=== PATIENT | male | born 1940 | race Two or more races ===

== ENCOUNTER 2020-04-27 18:27 | Inpatient (IN) | payer MEDICARE, OTHER ==
[~2020-04-27] VITALS: Ht 167.6 cm; Wt 68.4 kg
[2020-04-27] MEDS ORDERED: LIDOCAINE W/ EPINEPHRINE 2% INJ 20ML VIAL ID ONE (19:45)
[2020-04-27 19:49] LABS: Basophils # (auto) 0.1 10 ^3/uL (0-0.2); Eosinophils # (auto) 0.2 10 ^3/uL (0-0.8); Eosinophils % (auto) 2.6 % (0.0-7.0); Hematocrit 41.9 % (41.0-53.0); Hemoglobin 14.3 g/dL (13.5-17.5); Lymphocytes # (auto) 1.3 10 ^3/uL (0.4-5.4); Lymphocytes % (auto) 21.4 % (10.0-50.0); Mean Corpuscular Hemoglobin 33.7 pg (28.0-32.0); Mean Corpuscular Volume 98.9 fL (80.0-100.0); Monocytes # (auto) 0.5 10 ^3/uL (0-1.3); Monocytes % (auto) 7.7 % (0.0-12.0); Neutrophils % (auto) 67.3 % (37.0-80.0); Nucleated Red Blood Cells % 0.1 %; Platelet Count (auto) 189 10^3/uL (140-450); Red Blood Cells 4.23 10^6/uL (4.5-5.90); Red Cell Distribution Width 14.1 % (11.8-14.3)
[2020-04-27 20:08] LABS: Albumin 3.3 g/dL (3.4-5.0); Magnesium 2.2 mg/dL (1.6-2.6); Potassium 3.9 mmol/L (3.5-5.1)
[2020-04-27] MEDS ORDERED: HYDROcodone-ACET 5/325MG TAB PO ONE (20:15)
[2020-04-27] MEDS ORDERED: ONDANSETRON ODT 4 MG TAB PO ONE (20:15)
[2020-04-27 20:16] LABS: Bilirubin, Total 0.3 mg/dL (0.2-1.0)
[2020-04-27 20:26] LABS: INR 1.01 (0.9-1.15); Partial Thromboplastin Time 27.1 sec (23.0-31.2)
[2020-04-27] MEDS ORDERED: NITROGLYCERIN 0.4 MG SL TAB SL PRN (23:00)
[2020-04-27] MEDS ORDERED: MORPHINE SULF INJ 2 MG/ML SYRINGE 1ML IV PRN (23:00)
[2020-04-27] MEDS ORDERED: TEMAZEPAM 15 MG CAP PO PRN (23:00)
[2020-04-28 03:21] LABS: BUN/Creatinine Ratio 23.2; Calcium 9.1 mg/dL (8.5-10.1); Potassium 4.6 mmol/L (3.5-5.1)
[2020-04-28 06:27] LABS: Basophils # (auto) 0.1 10 ^3/uL (0-0.2); Basophils % (auto) 0.8 % (0.0-2.0); Eosinophils # (auto) 0.2 10 ^3/uL (0-0.8); Eosinophils % (auto) 2.3 % (0.0-7.0); Hematocrit 41.8 % (41.0-53.0); Lymphocytes # (auto) 1.3 10 ^3/uL (0.4-5.4); Lymphocytes % (auto) 15.9 % (10.0-50.0); Mean Corpuscular Hemoglobin 33.1 pg (28.0-32.0); Mean Corpuscular Hgb Conc. 33.5 g/dL (32.0-36.0); Mean Corpuscular Volume 98.9 fL (80.0-100.0); Monocytes # (auto) 0.7 10 ^3/uL (0-1.3); Monocytes % (auto) 9.2 % (0.0-12.0); Neutrophils # (auto) 5.7 10 ^3/uL (1.6-8.6); Neutrophils % (auto) 71.8 % (37.0-80.0); Nucleated Red Blood Cells % 0.1 %; Platelet Count (auto) 192 10^3/uL (140-450); Red Blood Cells 4.23 10^6/uL (4.5-5.90); Red Cell Distribution Width 14.1 % (11.8-14.3)
[2020-04-28] MEDS: ASPirin 81 mg TAB PO SCH (10:45)
[2020-04-28] MEDS: FAMOTIDINE 20 MG TAB PO SCH (10:46)
[2020-04-28] MEDS ORDERED: IOHEXOL 350 MG/ML 100ML IJ ONE (12:31)
[2020-04-29] VITALS (8 sets, daily range): BP systolic 126–171; BP diastolic 72–97
[2020-04-29] MEDS: ATORVASTATIN 20 MG TAB PO SCH ×2 (00:33→22:25)
[2020-04-29] MEDS: FAMOTIDINE 20 MG TAB PO SCH ×3 (00:33→22:25)
--- NOTE | 2020-04-29 07:45 | NUR ---
Opening Shift Note Assumed care of patient, awake and alert. No S/S of distress/SOB or pain. Instructed on POC and to call for assist PRN, will continue to monitor for changes Q1hr and PRN. Bed locked in lowest position with two side rails up and call light in reach.
[2020-04-29] MEDS ORDERED: ADENOSINE 63 MG in GIVE UN-DILUTED 0 ML IV STA (08:15)
--- NOTE | 2020-04-29 10:02 | NUR ---
WOUND CARE NOTE: Wound care in to see patient per wound care request regarding " occipital laceration, skin tears L L Extremity". Bedside nurse took photograph of patient's wounds upon admission for reference. Patient is 80 years old male with admitting diagnosis of Elevated Troponin. Patient resting in bed in Rm. 214B. Patient is awake, alert and oriented. Patient is in no stated pain at this time. He's ambulatory and self turning and repositioning. His Juan score is 20. No open wound noted other than dry, 4cm stapled laceration to posterior head with intact 10 park and dry intact scabbed wounds, scrapes to patient's LLE,no drainage/odor noted, left open to air. On reports,patient is s/p fall injury. No pressure injury noted. No further wound care monitoring needed at this time. Patient tolerated well. Bed in low position, call shelton within reach, all safety precautions in placed. RECOMMENDATION: Reconsult for active wound, pressure injury, low Juan score of 12 and below. Addendum: 04/29/20 at 1504 by Luzma Rueda RN Amended: Links added.
[2020-04-29] MEDS: ASPirin 81 mg TAB PO SCH (10:09)
[2020-04-30] VITALS (7 sets, daily range): BP systolic 124–157; BP diastolic 70–84
--- NOTE | 2020-04-30 02:00 | NUR ---
Called by weigher and charger Viviane who stated that grand daughter keeps calling and demanding to know information regarding his upcoming procedure. She believes he isn't being informed properly. She explained that there are trinidadian speaking staff members who spoke with him and he agrees so it will be done. While I was speaking with the weigher and charger, grand daughter "Ramona" called the office and was very upset. She stated that no one is giving her any information and the skilled nursing facilities professional isn't calling her back. It was explained again that the patient is A&O x 4, was explained the procedure and as far as we are concerned he will have the procedure. She wanted me to page Dr. Xavier to call her at 0200 am and I declined stating there wasn't a reason. She stated that if someone doesn't talk to her then she will come to the hospital and take the patient AMA. I reminded her again that he is alert and she will be unable to come and get him. She asked if the patient could during procedure and I stated with any procedure, there are risks and she stated that we "better not do anything to him unless they talk to her first". I attempted to reassure her.I verified phone number and told her that either Dr. Xavier or Jose CRUZ would call her if possible. She verbalized understanding and felt satisfied for the time being.
[2020-04-30 07:25] LABS: Basophils # (auto) 0.1 10 ^3/uL (0-0.2); Basophils % (auto) 0.7 % (0.0-2.0); Eosinophils # (auto) 0.1 10 ^3/uL (0-0.8); Eosinophils % (auto) 1.2 % (0.0-7.0); Hematocrit 40.4 % (41.0-53.0); Hemoglobin 13.8 g/dL (13.5-17.5); Lymphocytes # (auto) 1.6 10 ^3/uL (0.4-5.4); Lymphocytes % (auto) 18.5 % (10.0-50.0); Mean Corpuscular Hemoglobin 33.6 pg (28.0-32.0); Mean Corpuscular Hgb Conc. 34.1 g/dL (32.0-36.0); Mean Corpuscular Volume 98.4 fL (80.0-100.0); Monocytes # (auto) 0.8 10 ^3/uL (0-1.3); Monocytes % (auto) 9.2 % (0.0-12.0); Neutrophils # (auto) 5.9 10 ^3/uL (1.6-8.6); Neutrophils % (auto) 70.4 % (37.0-80.0); Platelet Count (auto) 187 10^3/uL (140-450); Red Cell Distribution Width 13.7 % (11.8-14.3); White Blood Cell 8.4 10^3/uL (4.4-10.8)
[2020-04-30 07:41] LABS: INR 1.03 (0.9-1.15); Partial Thromboplastin Time 28.5 sec (23.0-31.2)
[2020-04-30 07:42] LABS: Potassium 3.8 mmol/L (3.5-5.1)
[2020-04-30 07:49] LABS: BUN/Creatinine Ratio 22.7; Calcium 8.9 mg/dL (8.5-10.1)
--- NOTE | 2020-04-30 09:30 | NUR ---
RECEIVED A CALL FROM PATIENTS GRANDDAUGHTER JOURDAN. PER JOURDAN SHE HAS BEEN CALLING FOR TWO DAYS AND HAS HAD NO CALL FROM ANYONE INCLUDING NURSE. I HAVE HAD THIS PATIENT NOW TODAY 04/30/20 HAS BEEN DAY 2 AND HAVE RECEIVED NO CALLS, THIS MAY PERTAIN TO ER IM NOT TOO SURE. I EXPLAINED TO THE GRANDDAUGHTER UPON CONFIRMATION OF PASS[employer], PATIENT STATUS AND PLAN FOR THE DAY INCLUDING THE PROCEDURE OF LHC SCHEDULED FOR TODAY WITH DR CEE. JOURDAN WOULD LIKE ME TO EXPLAIN THE RISKS AND BENEFITS OF PROCEDURE AND THE URGENT NECESSITY. I SIMPLY EXPLAINED TO JOURDAN THAT I CANNOT, IT IS NOT IN MY SCOPE OF PRACTICE TO EXPLAIN THE RISKS AND BENEFITS TO HER OR PATIENT. I EXPLAINED THAT CLOTH REELER MICHELLE HAS BEEN IN TO SEE PATIENT AND HAS EXPLAINED THIS TO BETSY. PATIENT DOES AGREE TO PROCEDURE. AT THIS TIME PATIENT IS A/O X4 AND AMBULATORY. I ALSO EXPLAINED TO THE GRAND DAUGHTER THAT SINCE PATIENT IS ABLE TO MAKE OWN DECISIONS AND DOES NOT HAVE A POA OR ANY OTHER LEGAL PAPERWORK HE IS ABLE TO MAKE HIS OWN DECISION ON WHETHER OR NO HER WOULD LIKE TO HAVE THIS PROCEDURE. PER THE GRAND DAUGHTER SHE WILL CALL HER GRANDFATHER SREE MEYER AND MAKE SURE HE REFUSES UNTIL A PHYSICIAN CALLS HER AND EXPLAINS EVERYTHING, I EXPLAINED TO HER I CAN REQUEST BUT CANNOT GUARANTEE. SHE MAY WANT TO SIGN HIM OUT AMA PER JOURDAN. I HAVE NOTIFIED MY CHARGE LOPEZ ORTEGA. LOPEZ ORTEGA MYSELF, AND ANOTHER RN WHO WAS ABLE TO TRANSLATE IN DETAIL ASKED PATIENT IF HE HAD ANY QUESTIONS OR CONCERNS AND WHETHER OR NOT HE WOULD LIKE TO DO PROCEDURE ([facility]). PATIENT AGREES AND STATES HE KNOWS HIS GRAND DAUGHTER HAS BEEN CALLING AND WILL UPDATE HER ON HIS DECISION. UPON WALKING OUT OF ROOM PATIENTS TIFFANIE SOLIMAN CALLED, AND PATIENT WAS INSTRUCTED NOT TO SIGN ANY PAPERS. I WILL NOTIFY DR CEE OF REQUEST .
[2020-04-30] MEDS: ASPirin 81 mg TAB PO SCH (10:00)
[2020-04-30] MEDS: FAMOTIDINE 20 MG TAB PO SCH ×2 (10:00→22:51)
--- NOTE | 2020-04-30 10:30 | NUR ---
DR CEE AT BEDSIDE PER MY REQUEST TO EXPLAIN ONCE AGAIN PROCEDURE TO PATIENT. PATIENT DID NOTIFY ME AT THIS TIME THAT HIS GRANDDAUGHTER STATED NOT TO SIGN ANY PAPERS. DR CEE THOROUGHLY EXPLAINED ALL RISKS AND BENEFITS WELL PROCEDURE TO PATIENT. DR CEE ALSO CALLED GRANDDAUGHTER ON TELEPHONE JOURDAN AT [phone] IN MY PRESENCE, DR CEE EXPLAINED DISEASE PROCESS, CAUSES, RISKS AND BENEFITS WELL PROCEDURE. AT THIS TIME JOURDAN WISHES TO NOT HAVE ANY PROCEDURE DONE AND WANTS SECOND OPINION. GRAND DAUGHTER VERBALIZED UNDERSTANDING AND IS WELL AWARE OF RISKS IN NOT HAVING ANY PROCEDURES DONE AT THIS TIME.
--- NOTE | 2020-04-30 11:00 | NUR ---
DR SILVANA SANTIAGO.
--- NOTE | 2020-04-30 11:56 | NUR ---
Nutrition Assessment Notes Please refer to link for full assessment notes. Est Energy needs: 7255-4620 kcals (20-23 kcal/kgBW) Est Protein needs: 75-82 gms/day (1.0-1.1 gm/kgBW) Will continue to monitor and reassess prn. Addendum: 04/30/20 at [address] Amended: Links added.
--- NOTE | 2020-04-30 15:22 | NUR ---
Medicare IM Patient has been provided with IM by Jess ORTEGA and placed in chart. Addendum: 04/30/20 at 1523 by Mary Jo MARQUEZ Amended: Links added.
--- NOTE | 2020-04-30 16:11 | NUR ---
Assessment Patient is a 80 year old male, patient was unable to participate in assessment, SW called crow (Ramona [phone]). Per granddaughter, patient is alert and oriented. Per granddaughter, patient can do all ADL's and ambulate independently. Per granddaughter, patient lives with her and her father and patient will return home post discharge. Per granddaughter, patient receives social security as income. Per granddaughter, she is his support system and she will provide transportation post discharge. Per granddaughter, patient has POA but not filed at [facility]. Discharge planning: Patient will return home post discharge and follow up with PCP post discharge. There are no other post discharge concerns at the moment. Addendum: 04/30/20 at 1617 by DEVENDRA MARQUEZ Amended: Links added.
[2020-04-30] MEDS: ATORVASTATIN 20 MG TAB PO SCH (22:51)
[2020-05-01 05:00] VITALS: BP 132/69
[2020-05-01 09:00] VITALS: BP 136/71
[2020-05-01] MEDS: ASPirin 81 mg TAB PO SCH (09:21)
[2020-05-01] MEDS: FAMOTIDINE 20 MG TAB PO SCH ×2 (09:21→21:35)
[2020-05-01 13:00] VITALS: BP 145/60
--- NOTE | 2020-05-01 13:35 | NUR ---
Dr. Melendez at bedside discussed with grand daughter -Ramona, patient and grand daughter agreed to proceed a procedure.
[2020-05-01 17:12] VITALS: BP 154/91
--- NOTE | 2020-05-01 19:34 | NUR ---
Opening Shift Note Received report and assumed care of patient. Patient is awake and alert. No signs or symptoms of distress noted. Instructed patient on plan care of and to call for assistance. Will continue to monitor.
[2020-05-01] MEDS: ACETAMINOPHEN 325 MG TAB PO PRN (21:36)
[2020-05-01] MEDS: ATORVASTATIN 20 MG TAB PO SCH (21:36)
[2020-05-01 22:00] VITALS: BP 130/76
[2020-05-02 05:00] VITALS: BP 140/78
[2020-05-02 09:00] VITALS: BP 150/76
[2020-05-02] MEDS: FAMOTIDINE 20 MG TAB PO SCH ×2 (09:58→21:34)
[2020-05-02] MEDS: ASPirin 81 mg TAB PO SCH (09:59)
[2020-05-02 13:00] VITALS: BP 159/73
[2020-05-02 17:00] VITALS: BP 126/70
[2020-05-02 19:06] LABS: Urine WBC None Seen /hpf (0 - 3)
[2020-05-02 19:22] LABS: Urine Bacteria NONE SEEN /hpf (None Seen); Urine Blood Negative /uL (Negative); Urine Specific Gravity 1.012 (1.001-1.035)
[2020-05-02] MEDS ORDERED: LORazepam 2MG/ML-1ML VIAL IV PRN (20:15)
[2020-05-02] MEDS: ATORVASTATIN 20 MG TAB PO SCH (21:34)
[2020-05-02 21:52] LABS: Amphetamine Screen, Urine NEGATIVE (NEGATIVE); Barbiturate Scree,Urine NEGATIVE (NEGATIVE); Benzodiazephine Screen, Urine NEGATIVE (NEGATIVE); Cannabinoid Screen, Urine NEGATIVE (NEGATIVE); Cocaine Screen, Urine NEGATIVE (NEGATIVE); Opiate Scree,Urine NEGATIVE (NEGATIVE); Phencyclidine Screen, Urine NEGATIVE (NEGATIVE)
[2020-05-02 21:55] LABS: Alcohol, Urine < 3.0 mg/dL (0-10)
[2020-05-02 22:17] VITALS: BP 137/67
[2020-05-03 05:17] VITALS: BP 132/69
[2020-05-03 09:00] VITALS: BP 132/72
[2020-05-03] MEDS: ASPirin 81 mg TAB PO SCH (09:15)
[2020-05-03] MEDS: FAMOTIDINE 20 MG TAB PO SCH ×2 (09:15→22:00)
[2020-05-03] MEDS: ACETAMINOPHEN 325 MG TAB PO PRN (12:00)
[2020-05-03 13:00] VITALS: BP 121/87
--- NOTE | 2020-05-03 13:11 | NUR ---
Nutrition Followup Notes Pt wt is 68.1 kg Pt is with a Cardiac 2gNa diet, appetite is good aeb 100% x6 meals per RN doc. Per notes pt is active for lft heart cath. Please refer to link for full assessment notes. Est Energy needs: 5819-9197 kcals (20-23 kcal/kgBW) Est Protein needs: 75-82 gms/day (1.0-1.1 gm/kgBW) Will continue to monitor and reassess prn. LABS: BUN 19 H, Alb 3.3 L GI: Pt had 1 BM today per RN doc BS: 22 low risk. Refer to wound assessment report for further details PES: Altered nutrition related lab values r/t current medical condition aeb elev RFT, hypoalbuminemia Comments Will continue to monitor PO status, skin status, pertinent labs and weight trends. Will f/u in 3-5 days 1) Continue to closely monitor pt PO intake to meet at least 75% of meals 2) Continue current plan of care
[2020-05-03 17:00] VITALS: BP 132/77
[2020-05-03 22:00] VITALS: BP 122/87
[2020-05-03] MEDS: ATORVASTATIN 20 MG TAB PO SCH (22:00)
[2020-05-04] VITALS (7 sets, daily range): BP systolic 122–164; BP diastolic 58–81
[2020-05-04] MEDS: ASPirin 81 mg TAB PO SCH (09:29)
[2020-05-04] MEDS: FAMOTIDINE 20 MG TAB PO SCH ×2 (09:29→21:22)
--- NOTE | 2020-05-04 09:38 | NUR ---
Informed patient that he will have [facility] tomorrow and NPO AMN, patient verbalized understanding. Patient does not want to sign a consent right now, and he wants to discuss with his granddaughter. He want doctor to explain again on the surgery day. Will endorse to oriana rodriguez. Kiln [employer]er by [employer] #[id number].
--- NOTE | 2020-05-04 19:00 | NUR ---
Opening Shift Note Assumed care of patient, awake and alert. No S/S of distress/SOB or pain. Instructed on POC and to call for assist PRN, will continue to monitor for changes Q1hr and PRN. Patient in the lowest possible position with call light within reach. Bed rails up x2.
[2020-05-04] MEDS: ATORVASTATIN 20 MG TAB PO SCH (21:23)
--- NOTE | 2020-05-04 23:19 | NUR ---
Dr Magdaleno at bedside. No new orders. Will continue to monitor.
[2020-05-05] MEDS ORDERED: SODIUM CHLORIDE 0.9% 1,000 ML IV SCH (00:15)
[2020-05-05 05:00] VITALS: BP 143/90
--- NOTE | 2020-05-05 05:05 | NUR ---
Linens changed, patient cleaned.
--- NOTE | 2020-05-05 07:30 | NUR ---
Opening Shift Note Assumed care of patient, awake and alert. No S/S of distress/SOB or pain. Instructed on POC,t o keep NPO for Heart cath,call light within reach patient reminded instructed to call for assistance, will continue to monitor for changes Q1hr and PRN. Bed locked in lowest position with two side rails up,patient verbalized understanding.
[2020-05-05 08:00] VITALS: BP 130/86
[2020-05-05 09:00] VITALS: BP 130/86
--- NOTE | 2020-05-05 09:36 | NUR ---
TO [employer] DEVELOPER VIA BED ACCOMPANIED BY [employer] DEVELOPER STAFF FOR RIGHT HEART CATHETERIZATION
[2020-05-05] MEDS ORDERED: LIDOCAINE 2%HCL (LOCAL ANESTH.) INJ 20ML MDV ONE (09:40)
[2020-05-05] MEDS ORDERED: ANGIOMAX 250 MG VIAL IV ONE (10:17)
[2020-05-05] MEDS ORDERED: fentaNYL CITRATE 100 MCG/2 ML VL ONE (10:17)
[2020-05-05] MEDS ORDERED: MIDAZOLAM HCL 1MG/1ML-2 ML VIAL ONE (10:18)
[2020-05-05] MEDS ORDERED: SODIUM CHL 0.9% 0 ML ONE (10:18)
[2020-05-05 11:27] LABS: Basophils # (auto) 0.1 10 ^3/uL (0-0.2); Eosinophils # (auto) 0.1 10 ^3/uL (0-0.8); Eosinophils % (auto) 1.8 % (0.0-7.0); Hematocrit 44.9 % (41.0-53.0); Hemoglobin 14.8 g/dL (13.5-17.5); Lymphocytes # (auto) 1.6 10 ^3/uL (0.4-5.4); Lymphocytes % (auto) 20.8 % (10.0-50.0); Mean Corpuscular Hemoglobin 32.6 pg (28.0-32.0); Mean Corpuscular Hgb Conc. 33.1 g/dL (32.0-36.0); Mean Corpuscular Volume 98.7 fL (80.0-100.0); Monocytes # (auto) 0.7 10 ^3/uL (0-1.3); Monocytes % (auto) 9.1 % (0.0-12.0); Neutrophils % (auto) 67.3 % (37.0-80.0); Nucleated Red Blood Cells % 0.1 %; Platelet Count (auto) 223 10^3/uL (140-450); Red Blood Cells 4.55 10^6/uL (4.5-5.90); Red Cell Distribution Width 13.5 % (11.8-14.3); White Blood Cell 7.5 10^3/uL (4.4-10.8)
--- NOTE | 2020-05-05 12:07 | NUR ---
RECEIVED FROM HOUSE DETECTIVE VIA BED S/P LEFT AND RIGHT HEART CATH,ACCOMPANIED BY HOUSE DETECTIVE STAFF,RIGHT GROIN SOFT BENIGN,DRESSING DRY INTACT,INSTRUCTED TO KEEP FLAT AND BED REST UNTIL 1330,PATIENT VERBALIZED UNDERSTANDING.
--- NOTE | 2020-05-05 12:10 | NUR ---
POST OP VITAL SIGNS DONE,BP 128/74,HR68,TEMP:98.2,RR20,NO C/O PAIN ,NO CHEST PAIN
[2020-05-05 12:11] LABS: BUN/Creatinine Ratio 24.7; Calcium 9.8 mg/dL (8.5-10.1); Potassium 4.2 mmol/L (3.5-5.1)
[2020-05-05] MEDS: ASPirin 81 mg TAB PO SCH (12:40)
[2020-05-05] MEDS: FAMOTIDINE 20 MG TAB PO SCH ×2 (12:40→21:35)
[2020-05-05 13:42] LABS: INR 1.01 (0.9-1.15); Partial Thromboplastin Time 30.5 sec (23.0-31.2)
--- NOTE | 2020-05-05 14:20 | NUR ---
OOB AMBULATED TO REST ROOM,BACK TO BED TOLERATED ACTIVITY,RIGHT GROIN DRESSING CHECKED NOTED TO HAVE SMALL BLOODY DRAINAGE,SITE BENIGN, SOFT NO C/O PAIN.WILL RECHECKED DRESSING.
[2020-05-05 16:27] VITALS: BP 125/86
--- NOTE | 2020-05-05 17:08 | NUR ---
RIGHT GROIN BENIGN,SOFT,NO C/O PAIN DRESSING WITH SMALL DRAINAGE
--- NOTE | 2020-05-05 19:30 | NUR ---
Opening Shift Note Assumed care of patient, awake and alert x4. No S/S of distress/SOB or pain. Dressing to right groin is benign, drainage circled, no pain upon palpation. Instructed on POC and to call for assist PRN. Call light is within reach, will continue to monitor for changes Q1hr and PRN.
[2020-05-05] MEDS: ATORVASTATIN 20 MG TAB PO SCH (21:35)
[2020-05-05 22:00] VITALS: BP 142/76
[2020-05-06 05:00] VITALS: BP 120/72
--- NOTE | 2020-05-06 07:30 | NUR ---
Opening Shift Note Assumed care of patient, awake and alert. No S/S of distress/SOB or pain.Right groin dressing with old drainage,site benign, Instructed on POC,call light within reach patient reminded instructed to call for assistance, will continue to monitor for changes Q1hr and PRN. Bed locked in lowest position with two side rails up,patient verbalized understanding.
--- NOTE | 2020-05-06 07:30 | NUR ---
Opening Shift Note Assumed care of patient, awake and alert. No S/S of distress/SOB or pain. Instructed on POC,Right groin dressing with old dried drainage,site benign and soft,skin warm to touch and pulses palpable.call light within reach patient reminded instructed to call for assistance, will continue to monitor for changes Q1hr and PRN. Bed locked in lowest position with two side rails up,patient verbalized understanding.
[2020-05-06 09:00] VITALS: BP 140/80
[2020-05-06] MEDS: FAMOTIDINE 20 MG TAB PO SCH ×2 (10:00→21:54)
[2020-05-06] MEDS: ASPirin 81 mg TAB PO SCH (10:00)
--- NOTE | 2020-05-06 10:20 | NUR ---
[facility] NPRN SPOKE TO DR. Alexandr PINA RE PLAN OF TRANSFERRING PATIENT TO [place] FOR HLOC
--- NOTE | 2020-05-06 11:03 | NUR ---
Faxed clinical packet to [facility] [phone] requesting transfer to [facility] due to Critical Aortic Valve Stenosis
--- NOTE | 2020-05-06 12:18 | NUR ---
Received a call from Rosalind coordinator at [facility] transfer center gave updates on the patient and requested a COVID test done before they will accept the patient, called the nurse Margaret and ask to have a COVID done.
--- NOTE | 2020-05-06 12:25 | NUR ---
RECEIVED A CALL FROM BRODERICK IRIZARRY ACCOUNT STRATEGIST REGARDING NEEDING A INHOUSE COVID PER APRIL RIBERA REQUEST
--- NOTE | 2020-05-06 12:25 | NUR ---
INHOUSE COVID SPECIMEN SENT TO LAB Addendum: 05/06/20 at 1536 by Grecia Rasheed RN RN SENT AT [id number]
--- NOTE | 2020-05-06 12:33 | NUR ---
Nutrition Followup Notes Pt wt is 67.7 kg Pt is with a Cardiac 2gNa diet, appetite is good aeb ave 95% x5 meals per RN doc. Pt is doing well, feels good. Please refer to link for full assessment notes. Est Energy needs: 2902-7051 kcals (20-23 kcal/kgBW) Est Protein needs: 75-82 gms/day (1.0-1.1 gm/kgBW) Will continue to monitor and reassess prn. LABS: BUN 21 H, Alb 3.3 L GI: Pt had 2 BM today per RN doc BS: 21 low risk. Refer to wound assessment report for further details PES: Altered nutrition related lab values r/t current medical condition aeb elev RFT, hypoalbuminemia Comments Will continue to monitor PO status, skin status, pertinent labs and weight trends. Will f/u in 3-5 days 1) Continue to closely monitor pt PO intake to meet at least 75% of meals 2) Continue current plan of care
--- NOTE | 2020-05-06 12:55 | NUR ---
PATIENT SIGNED TRANSFER CONSENT
--- NOTE | 2020-05-06 16:20 | NUR ---
RADIOLOGY CD RECEIVED,IN TRANSFER PACKET
[2020-05-06 17:00] VITALS: BP 123/79
--- NOTE | 2020-05-06 17:07 | NUR ---
COVID results not back yet called an left a message at the station for Margaret ORTEGA to fax to [facility] when they are back.
--- NOTE | 2020-05-06 17:08 | NUR ---
COVID RESULT CHECKED,NOT AVAILABLE
--- NOTE | 2020-05-06 18:36 | NUR ---
STILL AWAITING FOR COVID RESULT
[2020-05-06 21:00] VITALS: BP 129/65
[2020-05-06] MEDS: ATORVASTATIN 20 MG TAB PO SCH (21:53)
--- NOTE | 2020-05-06 22:00 | NUR ---
Called lab regarding COVID test results, told results are still in process.
--- NOTE | 2020-05-07 03:15 | NUR ---
COVID RESULTS RECEIVED. Faxed COVID results to [facility].
[2020-05-07 05:00] VITALS: BP 124/68
--- NOTE | 2020-05-07 05:25 | NUR ---
Nasra from [facility] called. They received the covid results. There are currently no beds available, but they will call later on when a bed becomes available. Call back number for any questions is [phone] option #3.
--- NOTE | 2020-05-07 07:15 | NUR ---
Opening Shift Note: Assumed care of patient, awake and alert. No S/S of distress/SOB or pain. Bed in lowest locked position, side rails up x 2, call light within reach. Patient instructed on POC and to call for assist PRN, will continue to monitor for changes Q1hr and PRN.
--- NOTE | 2020-05-07 08:17 | NUR ---
Family contact: Family called, password received, family updated on pending transfer.
[2020-05-07] MEDS: ASPirin 81 mg TAB PO SCH (08:41)
[2020-05-07] MEDS: FAMOTIDINE 20 MG TAB PO SCH (08:41)
[2020-05-07 09:00] VITALS: BP 148/76
--- NOTE | 2020-05-07 10:45 | NUR ---
Called [facility] [phone] and spoke with Zainab Hawley and stated they are still waiting for a bed and will call as soon as one is available.
--- NOTE | 2020-05-07 11:31 | NUR ---
Received a call from John Hawley at [facility], stated patient has a Room 7310 Bed 2, Accepting Dr. Ortez, Call report to [phone].
--- NOTE | 2020-05-07 11:46 | NUR ---
Called [facility] spoke with Sriram dispatch manager and set up worm picker time at 1400 by ALS to transfer the patient to [facility], Called and informed the nurse Mei, of the worm picker time the room number and the accepting MD aware.
--- NOTE | 2020-05-07 12:23 | NUR ---
DISCHARGE PAPER WORK SIGNED, DISCHARGE WOUND PHOTOS TAKEN.
--- NOTE | 2020-05-07 13:06 | NUR ---
ATTEMPTED TO CALL REPORT TO RECEIVING FACILITY. UNABLE TO REACH RN AT THIS TIME
--- NOTE | 2020-05-07 14:08 | NUR ---
TELE BOX REMOVED.
--- NOTE | 2020-05-07 14:12 | NUR ---
REPORT CALLED TO JORDAN QURESHI AT [facility].
--- NOTE | 2020-05-07 15:24 | NUR ---
Pt being trans to another hosp: Order obtained for transfer of BETSY,SREE to [facility]. Report called to Abigail. Report given to EMS transport team. Medication reconciliation form completed and copy given to patient. Transported via [facility] along with copied chart and imaging disk and all personal belongings. No distress noted on time of departure. Family notified of destination and room number, verbalized understanding.
--- NOTE | 2020-05-07 16:06 | NUR ---
FAMILY UPDATED ON TRANSFER AND ROOM NUMBER AT [place].
== END 2020-05-07 15:25 | disposition short-term general hospital (02) | DRG 88 ==
LOC: EDBD 18:37 → ER 18:37 → OVERFLOW 18:38 → TELE-CENTR 04-29 07:27
PROVIDERS: ADMIT Nurse Practitioner; ATTEND Family Medicine
PROC: 0HQ0XZZ Repair Scalp Skin, External Approach (ICD-10-PCS; 2020-04-27)
PROC: B2111ZZ Fluoroscopy of Multiple Coronary Arteries using Low Osmolar Contrast (ICD-10-PCS; principal; 2020-05-05)
PROC: B2151ZZ Fluoroscopy of Left Heart using Low Osmolar Contrast (ICD-10-PCS; 2020-05-05)
PROC: 4A023N8 Measurement of Cardiac Sampling and Pressure, Bilateral, Percutaneous Approach (ICD-10-PCS; 2020-05-05)
DX: S06.0X9A Concussion with loss of consciousness of unspecified duration, initial encounter (principal); I21.4 Non-ST elevation (NSTEMI) myocardial infarction; E44.0 Moderate protein-calorie malnutrition; S01.01XA Laceration without foreign body of scalp, initial encounter; Z20.828 Contact with and (suspected) exposure to other viral communicable diseases; I35.0 Nonrheumatic aortic (valve) stenosis; Y93.01 Activity, walking, marching and hiking; I73.9 Peripheral vascular disease, unspecified; Z53.9 Procedure and treatment not carried out, unspecified reason; K80.20 Calculus of gallbladder without cholecystitis without obstruction; M25.78 Osteophyte, vertebrae; M48.00 Spinal stenosis, site unspecified; N28.1 Cyst of kidney, acquired; S16.1XXA Strain of muscle, fascia and tendon at neck level, initial encounter; W18.39XA Other fall on same level, initial encounter; Y99.8 Other external cause status; Y92.524 Gas station as the place of occurrence of the external cause; Z87.891 Personal history of nicotine dependence; Z91.19 Patient's noncompliance with other medical treatment and regimen; Z68.24 Body mass index [BMI] 24.0-24.9, adult
CPT/HCPCS: 12001; 36415; 70450; 70551; 71045; 71275; 72125; 78452; 80048; 80053; 80061; 80307; 81001; 83735; 83880; 84443; 84484; 85025; 85379; 85610; 85730; 93005; 93017; 93306; 93460; 93886; 93970; 99152; 99153; C1751; G0378; J0153; J2250; Q0162